=== PATIENT | female | born 1990 | race Caucasian/White ===

== ENCOUNTER → 2017-01-21 | Outpatient (CLI) | payer MEDICARE, OTHER ==
[2017-01-21 13:39] LABS: Basophils # (A) 0.1 k/uL (0-0.2); Basophils % (A) 1 %; CH 27.1; CHCM 31.3; Eosinophils # (A) 0.1 k/uL (0-0.7); Eosinophils % (A) 1 %; HCT 40.3 % (34.0-46.0); HDW 2.22; HGB 12.8 gm/dL (11.4-16.0); Luc # (Auto) 0.08; Luc % (Auto) 1; Lymphocytes # (A) 0.5 k/uL (1.0-4.8); Lymphocytes % (A) 6 %; MCH 27.8 pg (25.0-35.0); MCHC 31.8 g/dL (31.0-37.0); MCV 87.2 fL (80.0-100.0); Mean Platelet Volume 8.4; Monocytes # (A) 0.4 k/uL (0-1.0); Monocytes % (A) 4 %; Neutrophils # (A) 8.3 k/uL (1.3-7.7); Neutrophils % (A) 88 %; RBC 4.62 m/uL (3.80-5.40); RDW 13.4 % (11.5-15.5); WBC 9.4 k/uL (3.8-10.6); WBC (Perox) 9.52
[2017-01-21 13:48] LABS: ALT 23 U/L (9-52); AST 25 U/L (14-36); Alkaline Phosphatase 46 U/L (38-126); Anion Gap 10 mmol/L; Blood Urea Nitrogen 17 mg/dL (7-17); Calcium 8.6 mg/dL (8.4-10.2); Carbon Dioxide 27 mmol/L (22-30); Chloride 101 mmol/L (98-107); Glucose 204 mg/dL (74-99); Non-African American GFR(MDRD) >60 (>60 ml/min/1.73 sqM); Potassium 4.3 mmol/L (3.5-5.1); Sodium 138 mmol/L (137-145); Total Bilirubin 0.9 mg/dL (0.2-1.3); Total Protein 6.8 g/dL (6.3-8.2)
[2017-01-23 20:39] LABS: Mercury Whole Blood 2 mcg/L (< 11)
[2017-01-30 01:34] LABS: Aluminum Serum < 5 mcg/L (< 7)
== END | disposition home or self-care (01) ==
LOC: LABWHC1 13:07
PROVIDERS: ATTEND Family Medicine
DX: R68.83 Chills (without fever) (principal); R19.7 Diarrhea, unspecified
CPT/HCPCS: 36415; 80053; 82108; 82175; 82570; 83655; 83825; 85025

== ENCOUNTER → 2017-07-19 | Outpatient (CLI) | payer MEDICARE, OTHER ==
--- NOTE | 2017-07-19 14:14 | XR ---
EXAMINATION TYPE: XR chest 2V DATE OF EXAM: 07/19/2017 COMPARISON: 03/03/2016 HISTORY: Chest pain TECHNIQUE: Frontal and lateral views of the chest are obtained. FINDINGS: There is no focal air space opacity. No evidence for pneumothorax. No pleural effusion. The cardiac silhouette size is within normal limits. The osseous structures are grossly intact. IMPRESSION: 1. No acute cardiopulmonary process.
== END | disposition home or self-care (01) ==
LOC: RADXRMAIN 13:31
PROVIDERS: ATTEND Family Medicine
DX: R06.02 Shortness of breath (principal); Z87.09 Personal history of other diseases of the respiratory system
CPT/HCPCS: 71020

== ENCOUNTER → 2018-07-22 | Outpatient (CLI) | payer MEDICARE, OTHER ==
--- NOTE | 2018-07-22 16:02 | US ---
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 Transvaginal sonographic images were medically necessary to better assess the following anatomy: ovary, and per order. Date of LMP: 07/15/2018 EXAM MEASUREMENTS: Uterus: 6.8 nx 3.6 x 3.2 cm Endometrial Stripe: 1.6 cm Right Ovary: not seen Left Ovary: 3.0 x 2.6 x 2.4 cm 1. Uterus: Anteverted 2. Endometrium: thicker measure for day 8 LMP (normal = 4 to 6mm). 3. Right Ovary: not seen 4. Left Ovary: multiple follicles with largest as simple follicular cyst = 1.6 x 1.9 x 1.3cm. Spectral, color and waveform doppler imaging shows good arterial and venous flow within the left ov maritza; there is no evidence for ovarian torsion. 5. Bilateral Adnexa: wnl 6. Posterior cul-de-sac: wnl Grayscale, color Doppler, spectral Doppler imaging performed of the ovaries. There are vascular wavef orms, color flow to the left ovary. IMPRESSION: Abnormal thickening of the endometrium. Follow-up is recommended, consider endometrial bi opsy as indicated. Limited exam.
== END ==
LOC: RADUSWWP 15:02
PROVIDERS: ATTEND Family Medicine
DX: R93.89 Abnormal findings on diagnostic imaging of other specified body structures (principal)
CPT/HCPCS: 76830

== ENCOUNTER → 2018-11-25 | Outpatient (CLI) | payer MEDICARE ==
--- NOTE | 2018-11-25 13:58 | US ---
EXAMINATION TYPE: US transvaginal DATE OF EXAM: 11/25/2018 COMPARISON: NONE CLINICAL HISTORY: N83.202 Unspecified ovarian cyst, left side. TECHNIQUE: Transvaginal (TV). Date of LMP: 11/05/18 EXAM MEASUREMENTS: Uterus: 7.1 x 3.5 x 4.1 cm Endometrial Stripe: 0.9 cm Right Ovary: not visualized Left Ovary: 3.1 x 2.5 x 2.3 cm 1. Uterus: Anteverted wnl 2. Endometrium: wnl 3. Right Ovary: Obscured by overlying bowel gas 4. Left Ovary: wnl 5. Bilateral Adnexa: wnl 6. Posterior cul-de-sac: wnl IMPRESSION: 1. No distinct abnormality appreciated.
== END | disposition home or self-care (01) ==
LOC: RADUSWWP 12:55
PROVIDERS: ATTEND Family Medicine
DX: N83.202 Unspecified ovarian cyst, left side (principal)
CPT/HCPCS: 76830

== ENCOUNTER → 2019-06-17 | Outpatient (CLI) | payer MEDICARE ==
--- NOTE | 2019-06-17 11:53 | US ---
EXAMINATION TYPE: US venous doppler duplex LE RT DATE OF EXAM: 06/17/2019 11:44 AM COMPARISON: NONE CLINICAL HISTORY: M25.571 PAIN RT ANKLE,S93.401D SPRAIN RT ANKLE. Right leg pain SIDE PERFORMED: Right TECHNIQUE: The lower extremity deep venous system is examined utilizing real time linear array sonog lauren with graded compression, doppler sonography and color-flow sonography. VESSELS IMAGED: External Iliac Vein (EIV) Common Femoral Vein Deep Femoral Vein Greater Saphenous Vein * Femoral Vein Popliteal Vein Small Saphenous Vein * Proximal Calf Veins (* superficial vessels) Grayscale, color doppler, spectral doppler imaging performed of the deep veins of the right lower ext remity. There is normal flow, compressibility, vascular waveforms. Right Leg: Appears negative for DVT IMPRESSION: No sonographic evidence of deep venous arthrosis within the right lower extremity.
== END ==
LOC: RADUSWWP 11:29
PROVIDERS: ATTEND Orthopaedic Surgery
DX: M25.571 Pain in right ankle and joints of right foot (principal); R60.9 Edema, unspecified

== ENCOUNTER → 2019-08-20 | Outpatient (CLI) | payer MEDICARE ==
--- NOTE | 2019-08-20 10:52 | US ---
EXAMINATION TYPE: US venous doppler duplex LE LT DATE OF EXAM: 08/20/2019 10:36 AM COMPARISON: NONE CLINICAL HISTORY: 29-year-old female M79.605 PAIN IN THE LEFT LEG. SIDE PERFORMED: Left TECHNIQUE: The lower extremity deep venous system is examined utilizing real time linear array sonog lauren with graded compression, doppler sonography and color-flow sonography. FINDINGS: VESSELS IMAGED: External Iliac Vein (EIV) Common Femoral Vein Deep Femoral Vein Greater Saphenous Vein * Femoral Vein Popliteal Vein Small Saphenous Vein * Proximal Calf Veins (* superficial vessels) Left Leg: Negative for DVT IMPRESSION: No evidence for DVT within the left lower extremity imaged from the groin to the upper calf.
== END | disposition home or self-care (01) ==
LOC: RADUSWWP 10:17
PROVIDERS: ATTEND Family Medicine
DX: M79.605 Pain in left leg (principal)

== ENCOUNTER → 2019-08-25 | Outpatient (CLI) | payer MEDICARE ==
[2019-08-25 12:02] LABS: Appearance,Urine Cloudy (Clear); Bacteria,Urine Occasional /hpf; Bilirubin,Urine Negative (Negative); Blood,Urine Large (Negative); Color,Urine Yellow; Glucose,Urine (UA) Negative (Negative); Ketones,Urine Negative (Negative); Leukocyte Esterase,Urine Trace (Negative); Mucus,Urine Occasional /hpf; Nitrite,Urine Positive (Negative); Protein,Urine Trace (Negative); RBC,Urine >182 /hpf (0-5); Specific Gravity,Urine 1.027 (1.001-1.035); Squamous Epithelial Cell,Urine <1 /hpf (0-4); Urobilinogen,Urine <2.0 mg/dL (<2.0); WBC,Urine 3 /hpf (0-5)
== END | disposition home or self-care (01) ==
LOC: LABWHC1 10:05
PROVIDERS: ATTEND Family Medicine
DX: R30.0 Dysuria (principal); R11.0 Nausea
CPT/HCPCS: 81001

== ENCOUNTER → 2019-09-15 | Outpatient (CLI) | payer MEDICARE ==
[~2019-09-15] MED LIST: IRON SUCROSE 100 MG in SODIUM CHLORIDE 0.9% 100 ML IVPB NR; IRON SUCROSE 100 MG in SODIUM CHLORIDE 0.9% 100 ML IVPB ONE; SODIUM CHLORIDE 0.9% 500 ML 500 ML in EMPTY BAG 1 BAG IV PRN
[2019-09-15 11:53] VITALS: BP 96/71; PULSE 96; RESP 18; TEMP 97.6
== END | disposition home or self-care (01) ==
LOC: PROCWHC3 11:18
PROVIDERS: ATTEND Family Medicine
DX: N92.0 Excessive and frequent menstruation with regular cycle (principal); D50.9 Iron deficiency anemia, unspecified
CPT/HCPCS: 96365; J1756

== ENCOUNTER 2021-02-13 15:22 | Emergency (ER) | payer MEDICARE, OTHER ==
[2021-02-13 15:55] VITALS: RESP 16; TEMP 97.7
[2021-02-13] MEDS ORDERED: DIPH,PERTUS(ACELL)TETVAC-LF 0.5 ML VIAL IM ONE (18:07)
[2021-02-13] MEDS ORDERED: LIDOCAINE/EPINEPHR/TETRACAINE 5 ML BOTTLE TOPICAL ONE (18:08)
--- NOTE | 2021-02-13 18:14 | ED ---
Wound/Laceration HPI - General Chief Complaint: Wound/Laceration Stated Complaint: Fall, Chin laceration Source: patient, family, RN notes reviewed Mode of arrival: wheelchair Limitations: no limitations - History of Present Illness Initial Comments: 30-year-old white female patient, alert and oriented presents with family complaining of a fall that happened today around 9:30 in the kitchen. Patient fell and landed on her left side sustaining a laceration her chin approximately 2 cm which was dressed with a Steri-Strip at home however the bleeding has not been controlled. Patient also sustained a 0.5 cm laceration below the left cheekbone and bilateral bruising to both hands and abrasion to her left inner thigh during the same fall. Patient denies any loss of consciousness or any other injuries. 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 Patient also has a history of anemia and bruises easily per family. Patient does not take blood thinners. Patient is followed by [facility] and has an appointment coming up in March, primary care doctor is Dr. Carvalho. Adoptive grandmother at bedside states that patient is acting her normal self and is baseline. -: hour(s) (9) Location: face (.5mm lac left cheek), other (chin) Extremity Location: Left: Hand (bruising to dorsal surface of both hands), Right: Hand Place: home Patient Tetanus UTD: No Context: accidental, fall Associated Symptoms: none Treatments Prior to Arrival: bandage - Related Data Home Medications Medication Instructions Recorded Confirmed Cholecalciferol (Vitamin D3) 10,000 unit PO DAILY 03/03/16 09/15/19 [Vitamin D3] Multivitamin [Children's 1 tab PO DAILY 06/13/16 09/15/19 Multivitamins] clonazePAM [KlonoPIN] 1 mg PO DAILY 09/15/19 09/15/19 Allergies Allergy/AdvReac Type Severity Reaction Status Date / Time amantadine Allergy Unknown Verified 02/13/21 15:53 ciprofloxacin Allergy Unknown Verified 02/13/21 15:53 morphine Allergy Unknown Verified 02/13/21 15:53 sulfamethoxazole Allergy Unknown Verified 02/13/21 15:53 [From Bactrim] trimethoprim [From Bactrim] Allergy Unknown Verified 02/13/21 15:53 Review of Systems ROS Statement: Those systems with pertinent positive or pertinent negative responses have been documented in the HPI. ROS Other: All systems not noted in ROS Statement are negative. Past Medical History Past Medical History: Pneumonia Additional Past Medical History / Comment(s): brain tumor,ARDS,cranial bleeds with surgery History of Any Multi-Drug Resistant Organisms: None Reported Past Surgical History: Adenoidectomy, Cholecystectomy, Tonsillectomy Additional Past Surgical History / Comment(s): BRAIN SURGERY TO REMOVE TUMOR 2006, RIGHT OOPHERECTOMY CYST REMOVAL, 2009-2nd craniotomy Past Psychological History: PTSD Smoking Status: Never smoker Past Alcohol Use History: None Reported Past Drug Use History: None Reported General Exam Limitations: no limitations General appearance: alert, in no apparent distress Eye exam: Present: normal appearance, PERRL, EOMI, periorbital swelling, periorbital tenderness, other (left eye ecchymosis). Absent: scleral icterus, conjunctival injection Pupils: Present: normal accommodation ENT exam: Present: normal exam, mucous membranes moist, TM's normal bilaterally, normal external ear exam. Absent: normal oropharynx Neck exam: Present: normal inspection, full ROM. Absent: tenderness, meningismus, lymphadenopathy, thyromegaly Respiratory exam: Present: normal lung sounds bilaterally. Absent: respiratory distress, wheezes, rales, rhonchi, stridor, chest wall tenderness, accessory muscle use, decreased breath sounds Cardiovascular Exam: Present: regular rate GI/Abdominal exam: Present: soft, normal bowel sounds. Absent: distended, tenderness, guarding, rebound, rigid Extremities exam: Present: normal inspection, full ROM, normal capillary refill. Absent: tenderness, pedal edema, joint swelling, calf tenderness Back exam: Present: full ROM. Absent: tenderness, CVA tenderness (R), CVA tenderness (L), muscle spasm, paraspinal tenderness, vertebral tenderness, rash noted Neurological exam: Present: alert, oriented X3 Expanded Patient oriented to: Present: person, place, time Psychiatric exam: Present: normal affect, normal mood Skin exam: Present: warm, dry, intact, normal color. Absent: rash, cyanosis, diaphoretic, erythema, petechiae, pallor, mottled Expanded Type of lesion: Present: laceration (Approximately 2 cm laceration to the chin.) Description of rash: Present: other (Trichomonas to dorsal surface of both hands, 0.5 cm laceration to the left zygomatic arch;abrasion to the left inner thigh with bruising ) Course Vital Signs 02/13/21 15:53 Temperature 97.7 F Pulse Rate 101 H Respiratory 16 Rate Blood Pressure 105/79 O2 Sat by Pulse 99 Oximetry Procedures - Laceration Laceration #1 Indication: laceration Site: other Description: linear (Chin) Depth: simple, single layer Anesthetic Used: lidocaine 1% Amount (mls): 2 (With LET) Pre-repair: irrigated extensively Type of Sutures: nylon Size of Sutures: 5-0 Number of Sutures: 4 Technique: simple, interrupted Patient Tolerated Procedure: well Additional Comments: Steri-Strips applied in addition to sutures Medical Decision Making - Medical Decision Making Per grandmother patient is baseline, tetanus was updated at this visit. Four sutures used to close chin laceration after irrigation with 100 mL of normal saline. Sutures secured additionally with Steri-Strips. Hemoglobin and hematocrit is 13 and 43, platelets 236. PT/INR is [address] facial bones and brain negative for intracranial hemorrhage or mass effect or midline shift. There is soft tissue injury of the left mandible without acute fracture with mild emphysema. Bilateral orbits are intact. There is thickening of the right maxillary sinus.Grandmother advised the patient needs follow-up with Dr. Carvalho next week for suture removal and reevaluation. Return to the emergency room with any worsening symptoms or signs of infection including fever or drainage from the suture site. Case discussed with Dr. Barnes was agreeable to discharge and follow-up with her primary care. - Lab Data Result diagrams: 02/13/21 19:02 02/13/21 19:02 Lab Results 02/13/21 02/13/21 02/13/21 Range/Units 19:02 19:02 19:02 WBC 8.2 (3.8-10.6) k/uL RBC 5.14 (3.80-5.40) m/uL Hgb 13.6 (11.4-16.0) gm/dL Hct 43.4 (34.0-46.0) % MCV 84.4 (80.0-100.0) fL MCH 26.6 (25.0-35.0) pg MCHC 31.5 (31.0-37.0) g/dL RDW 14.0 (11.5-15.5) % Plt Count 236 (150-450) k/uL MPV 8.3 Neutrophils % 71 % Lymphocytes % 21 % Monocytes % 4 % Eosinophils % 2 % Basophils % 1 % Neutrophils # 5.8 (1.3-7.7) k/uL Lymphocytes # 1.8 (1.0-4.8) k/uL Monocytes # 0.3 (0-1.0) k/uL Eosinophils # 0.1 (0-0.7) k/uL Basophils # 0.0 (0-0.2) k/uL PT 10.3 (9.0-12.0) sec INR 1.0 (<1.2) APTT 27.5 (22.0-30.0) sec Sodium 139 (137-145) mmol/L Potassium 4.1 (3.5-5.1) mmol/L Chloride 103 (98-107) mmol/L Carbon Dioxide 28 (22-30) mmol/L Anion Gap 8 mmol/L BUN 12 (7-17) mg/dL Creatinine 0.77 (0.52-1.04) mg/dL Est GFR (CKD-EPI)AfAm >90 (>60 ml/min/1.73 sqM) Est GFR (CKD-EPI)NonAf >90 (>60 ml/min/1.73 sqM) Glucose 84 (74-99) mg/dL Calcium 9.1 (8.4-10.2) mg/dL Total Bilirubin 0.6 (0.2-1.3) mg/dL AST 30 (14-36) U/L ALT 14 (4-34) U/L Alkaline Phosphatase 70 (38-126) U/L Total Protein 7.5 (6.3-8.2) g/dL Albumin 4.3 (3.5-5.0) g/dL Disposition Clinical Impression: Facial contusion, Fall Clinical Impression: (Ruled Out): Laceration Disposition: HOME SELF-CARE Condition: Fair Instructions (If sedation given, give patient instructions): Care For Your Stitches (ED), Laceration (ED), Fall Prevention (ED) Additional Instructions: Follow-up with your primary care doctor in 1 week. Sutures to be removed in 5-7 days. Return to the emergency room with worsening symptoms, signs and symptoms of infection including fever or drainage. Is patient prescribed a controlled substance at d/c from ED?: No Referrals: Lorin Carvalho MD [Primary Care Provider] - 1-2 days Time of Disposition: 19:55
[2021-02-13] MEDS ORDERED: LIDOCAINE 1% INJ 10MG/ML (20 ML MDV) SQ ONE (18:20)
[2021-02-13] MEDS ORDERED: ACETAMINOPHEN TAB 325 MG TAB PO STA (18:30)
[2021-02-13 19:13] LABS: Basophils % (A) 1 %; Eosinophils # (A) 0.1 k/uL (0-0.7); Eosinophils % (A) 2 %; HCT 43.4 % (34.0-46.0); HGB 13.6 gm/dL (11.4-16.0); Lymphocytes # (A) 1.8 k/uL (1.0-4.8); Lymphocytes % (A) 21 %; MCH 26.6 pg (25.0-35.0); MCHC 31.5 g/dL (31.0-37.0); MCV 84.4 fL (80.0-100.0); Mean Platelet Volume 8.3; Monocytes # (A) 0.3 k/uL (0-1.0); Monocytes % (A) 4 %; Neutrophils # (A) 5.8 k/uL (1.3-7.7); Neutrophils % (A) 71 %; Platelet Count 236 k/uL (150-450); RBC 5.14 m/uL (3.80-5.40); WBC 8.2 k/uL (3.8-10.6)
[2021-02-13 19:21] LABS: ALT 14 U/L (4-34); AST 30 U/L (14-36); African American GFR (CKD) >90 (>60 ml/min/1.73 sqM); Albumin 4.3 g/dL (3.5-5.0); Alkaline Phosphatase 70 U/L (38-126); Anion Gap 8 mmol/L; Blood Urea Nitrogen 12 mg/dL (7-17); Calcium 9.1 mg/dL (8.4-10.2); Carbon Dioxide 28 mmol/L (22-30); Chloride 103 mmol/L (98-107); Glucose 84 mg/dL (74-99); Non-African American GFR(CKD) >90 (>60 ml/min/1.73 sqM); Potassium 4.1 mmol/L (3.5-5.1); Sodium 139 mmol/L (137-145); Total Bilirubin 0.6 mg/dL (0.2-1.3); Total Protein 7.5 g/dL (6.3-8.2)
[2021-02-13 19:23] LABS: Partial Thromboplastin Time 27.5 sec (22.0-30.0); Prothrombin Time 10.3 sec (9.0-12.0)
[2021-02-13] MEDS ORDERED: BACITRACIN OINT 1 EACH PACKET TOPICAL ONE (19:39)
--- NOTE | 2021-02-13 19:45 | CT ---
EXAMINATION TYPE: CT brain wo con DATE OF EXAM: 02/13/2021 COMPARISON: None available. HISTORY: fall CT DLP: 860.6 mGycm. Automated Exposure Control for Dose Reduction was Utilized. TECHNIQUE: CT scan of the head is performed without contrast. FINDINGS: There is no acute intracranial hemorrhage, mass effect, or midline shift identified. The ventricles and sulci are within normal limits in size. The globes are intact and the visualized sin uses are clear. There is suboccipital craniotomy with underlying moderate encephalomalacia centered w ithin the cerebellar vermis. Additional bilateral frontoparietal craniotomies also seen. IMPRESSION: No acute intracranial hemorrhage, mass effect, or midline shift is seen. Chronic changes as above.
--- NOTE | 2021-02-13 19:53 | CT ---
EXAMINATION TYPE: CT facial bones wo con DATE OF EXAM: 02/13/2021 COMPARISON: None available. HISTORY: fall CT DLP: 860.6 mGycm Automated exposure control for dose reduction was used. TECHNIQUE: CT scan of the facial bones is performed without contrast, axial images are obtained, maryjane nal reformatted images are also reviewed. FINDINGS: There is no acute fracture or dislocation. The pterygoid plates, zygomatic arches, maxilla or mandibl e is are intact. The paranasal sinuses demonstrate large mucus retention cyst of the left maxillary s inus and mild mucosal thickening of the right maxillary sinus. The bilateral orbits are intact. The m astoid air cells are adequately aerated. There is soft tissue wound with mild emphysema overlying the left anterior mandible. IMPRESSION: Soft tissue injury about the left mandible without acute fracture.
[2021-02-13 20:01] VITALS: BP 114/78; PULSE 75
== END 2021-02-13 20:05 | disposition home or self-care (01) ==
LOC: EC 15:22
DX: S01.81XA Laceration without foreign body of other part of head, initial encounter (principal); S70.12XA Contusion of left thigh, initial encounter; A59.9 Trichomoniasis, unspecified; Z23 Encounter for immunization; Z86.73 Personal history of transient ischemic attack (TIA), and cerebral infarction without residual deficits; Z88.1 Allergy status to other antibiotic agents; Z88.2 Allergy status to sulfonamides; Z90.49 Acquired absence of other specified parts of digestive tract; Z90.721 Acquired absence of ovaries, unilateral; W18.30XA Fall on same level, unspecified, initial encounter; Y92.000 Kitchen of unspecified non-institutional (private) residence as the place of occurrence of the external cause
CPT/HCPCS: 36415; 80053; 85025; 85610; 85730; 70486; 70450; 90715; 99284; 90471; 12011; J2001